=== PATIENT | male | born 1965 | race Caucasian/White ===

== ENCOUNTER 2017-01-02 19:44 | Emergency (ER) | payer OTHER ==
--- NOTE | 2017-01-02 20:51 | RAD ---
Exam: Three-view lumbar spine COMPARISON: None INDICATION: Low back pain after jumping down out of trailer approximately 3 feet. Findings: AP, lateral and AP angled views of the lumbar spine were obtained. There are 5 nonrib-bearing lumbar vertebra. There is straightening of the normal lumbar lordosis with trace retrolisthesis of L4 and L5. There is multilevel degenerative disc disease, most prominent at L4-5. There is no vertebral body compression fracture. Sacroiliac joints are within normal limits and symmetric. IMPRESSION: No acute osseous abnormality in the lumbar spine. Multilevel degenerative disc disease, most prominent at L4-5 where there is trace retrolisthesis.
[2017-01-02] MEDS ORDERED: KETOROLAC TROMETHAMINE 60 MG/2 ML VIAL ONE (21:02)
[2017-01-02] MEDS ORDERED: DIAZEPAM 5 MG TABLET ONE (21:03)
== END 2017-01-02 21:40 | disposition home or self-care (01) ==
LOC: ED 19:44
DX: M54.5 Low back pain (principal); I48.91 Unspecified atrial fibrillation; E78.00 Pure hypercholesterolemia, unspecified; I49.9 Cardiac arrhythmia, unspecified; Z79.899 Other long term (current) drug therapy
CPT/HCPCS: 72100; 99283 ×2; 96372; 51798; J1885; A9270

== ENCOUNTER 2017-03-06 12:04 | Emergency (ER) | payer OTHER ==
[2017-03-06] MEDS ORDERED: HYDROCODONE/ACETAMINOPHEN 5/325MG TABLET ONE (13:25)
--- NOTE | 2017-03-06 14:06 | US ---
VENOUS ULTRASOUND OF EXTREMITY Indications: Pain and swelling for one month. Comparison: None FINDINGS: Multiple grayscale, color-flow and duplex Doppler images during left lower extremity DVT ultrasound are obtained from the common femoral vein down through to the peroneal and posterior tibial veins. DEEP VENOUS THROMBOSIS: None. COMMON FEMORAL VEIN: Normal. PROXIMAL FEMORAL VEIN: Normal. MID TO DISTAL FEMORAL VEIN: Normal. POPLITEAL VEIN: Normal. PROXIMAL CALF VEINS: Normal. Exam is limited by patient's body habitus. IMPRESSION: No deep venous thrombosis of the left leg. Findings were called to Dr. Murrieta at approximately 1403 hours on 03/06/2017.
== END 2017-03-06 14:22 | disposition home or self-care (01) ==
LOC: ED 12:04
DX: M79.662 Pain in left lower leg (principal); I48.91 Unspecified atrial fibrillation
CPT/HCPCS: 99283 ×2; 93971; A9270